=== PATIENT | female | born 1970 | race Caucasian/White ===

== ENCOUNTER 2022-02-10 18:10 | Outpatient (CLI) | payer OTHER, SELFPAY ==
[2022-02-10 09:16] LABS: INR 3.6 (0.9-1.1); Prothrombin Time 33.7 sec (9.3-11.0)
== END 2022-02-10 18:11 | disposition home or self-care (01) ==
LOC: LBO 18:15
PROVIDERS: Visit Provider Pharmacist Pharmacotherapy
DX: Z86.711 Personal history of pulmonary embolism (principal); Z79.01 Long term (current) use of anticoagulants
CPT/HCPCS: 36415; 85610

== ENCOUNTER 2022-02-27 11:53 | Outpatient (CLI) | payer OTHER, SELFPAY ==
[2022-02-27 10:45] LABS: INR 3.3 (0.9-1.1); Prothrombin Time 30.5 sec (9.3-11.0)
== END 2022-02-27 11:54 | disposition home or self-care (01) ==
DX: Z86.711 Personal history of pulmonary embolism (principal)
CPT/HCPCS: 36415; 85610